=== PATIENT | female | born 1945 ===

== ENCOUNTER 2020-08-03 10:54 | Outpatient (CLI) | payer SELFPAY ==
[2020-08-03] MEDS ORDERED: COVID-19 VACC, MRNA(PFIZER)/PF 30 MCG/0.3 ML IM ONE (13:45)
[2020-08-24] MEDS ORDERED: COVID-19 VACC, MRNA(PFIZER)/PF 30 MCG/0.3 ML IM ONE (11:30)
== END 2020-08-03 10:55 | disposition home or self-care (01) ==
LOC: COVVAC 10:54
DX: Z23 Encounter for immunization (principal)
CPT/HCPCS: 0001A